=== PATIENT | female | born 2000 | race Native Hawaiian/Other Pacific Islander ===

== ENCOUNTER 2020-03-20 10:23 | Emergency (ER) | payer MEDICAID ==
[~2020-03-20] VITALS: Ht 162.6 cm; Wt 86.4 kg
[2020-03-20] MEDS ORDERED: KETOROLAC TROMETHAMINE 10 MG TABLET PO ONE (11:45)
[2020-03-20] MEDS ORDERED: METHOCARBAMOL 500 MG TABLET PO ONE (11:45)
[2020-03-20 12:35] VITALS: BP 124/83
== END 2020-03-20 12:41 | disposition home or self-care (01) ==
LOC: EMS 10:30
DX: S39.012A Strain of muscle, fascia and tendon of lower back, initial encounter (principal); X58.XXXA Exposure to other specified factors, initial encounter; Y93.89 Activity, other specified; Y92.89 Other specified places as the place of occurrence of the external cause; Y99.8 Other external cause status

== ENCOUNTER 2020-04-02 09:33 | Emergency (ER) | payer MEDICAID ==
[~2020-04-02] VITALS: Ht 165.1 cm; Wt 81.8 kg
[2020-04-02 09:36] VITALS: BP 108/75
== END 2020-04-02 10:51 | disposition home or self-care (01) ==
LOC: EMS 09:36
DX: M54.5 Low back pain (principal)
CPT/HCPCS: Z7502